=== PATIENT | female | born 1975 | race Caucasian/White ===

== ENCOUNTER 2019-02-22 00:22 | Inpatient (IN) | payer OTHER ==
[~2019-02-22] VITALS: Ht 170.2 cm; Wt 63.0 kg
[2019-02-22 00:25] VITALS: Ht 170.2 cm; Wt 63.0 kg
--- NOTE | 2019-02-22 01:01 | NUR ---
PT BIB SELF FOR C/O SUICIDAL IDEATION. PER PT SHE DID NOT WANT TO LIVE ANYMORE AND STS THAT SHE TOOK " A HANDFULL OF PILLS". PT STS THAT SHE TOOK ASA BUT CANNOT RECALL THE DOSAGE OR THE AMOUNT OF PILLS. PT REPORTS SHE IS NO LONGER SUICIDAL AND WANTS [place] HELP SICNE SHE DOES NOT WANT TO HARM HERSELF ANY LONGER. PT DENIES ANY HI/SI/AH/VH. PT IS SPEAKING IN A FAST MANNER AND SEEMS TO GET EASILY CONFUSED. PT IS A/O X3. PT RESPS ARE E/U. PT IS ABLE TO AMBULATE WITH STEADY GAIT. PT IS PLACED ON MONITOR. DR CROOK AT BEDSIDE FOR MSE
[2019-02-22 01:32] LABS: BASOPHIL % 0.3 % (0-2); PLATELET COUNT 342 x10^3mcL (130-400); RED CELL DISTRIBUTION WIDTH 13.6 % (11.5-14.5)
[2019-02-22 01:38] LABS: CALCIUM 7.4 mg/dL (8.5-10.1); CARBON DIOXIDE 27.1 mmol/L (21-32); CHLORIDE SERUM 105 mmol/L (98-107); CREATININE SERUM 1.1 mg/dL (0.6-1.0); GFR1 57 mL/min; GLUCOSE SERUM 87 mg/dL (74-106); POTASSIUM SERUM 3.2 mmol/L (3.5-5.1); SODIUM SERUM 143 mmol/L (136-145)
[2019-02-22 01:46] LABS: ALKALINE PHOSPHATASE 198 U/L (46-116); ALT/SGPT 156 U/L (14-59); AST/SGOT 47 U/L (15-37); BILIRUBIN TOTAL 0.36 mg/dL (0.20-1.00)
[2019-02-22 01:47] LABS: ALBUMIN 3.1 g/dL (3.4-5.0)
--- NOTE | 2019-02-22 02:15 | NUR ---
CALLED AND SPOKE WITH IFEANYI FROM POISON CONTROL. GAVE IFEANYI REPORT OF THE PT AND WHAT SHE TOLD ME AND RELAYED JOEL RECOMMENDATIONS TO DR MEDINA. WAITING FURTHER ORDERS
--- NOTE | 2019-02-22 02:30 | NUR ---
PT WITNESSED TALKING TO HERSELF WHEN RESPONDING TO PT STATES "IM NOT TALKING TO YOU".
[2019-02-22 03:07] LABS: UA SPECIFIC GRAVITY >=1.030 (1.005-1.035); microscopic required? YES; urine erythrocyte NEGATIVE (NEGATIVE)
--- NOTE | 2019-02-22 03:54 | NUR ---
ACCOMPANIED PT TO RESTROOM. PT AMBULATED WITH STEADY GAIT. PT BACK TO BED 7 IN NAD. PT AWAKE AND ALERT. PT REQUESTING LINEN CHANGE. SHEET APPEARS SOILED. PT BED LINEN CHANGED. PRIMARY RN AWARE.
--- NOTE | 2019-02-22 03:59 | NUR ---
PT REQUESTING SPRITE. OKAY PER DR CROOK TO PROVIDE PT WITH SPRITE AT THIS TIME.
--- NOTE | 2019-02-22 04:18 | NUR ---
REPORT GIVEN TO LARRY CLAY TO ASSUME CARE OF PT.
--- NOTE | 2019-02-22 04:18 | NUR ---
PT LAYING IN BED SLEEPING, VISIBLE RISE AND FALL OF CHEST PT EASILY AROUSABLE.
[2019-02-22 04:28] LABS: FREE T4 1.06 ng/dL (0.76-1.46); FREE THYROXINE INDEX 3.3 ug/dL (1.4-4.5); T4(THYROXINE) 9.5 ug/dL (4.7-13.3)
--- NOTE | 2019-02-22 04:30 | NUR ---
RECEIVED PT FROM ED VIA MINH ACCOMPANIED BY RN. NO ACUTE DISTRESS NOTED. EVEN AND UNLABORED RESPIRATIONS ON RA. TELE#23 PLACED ON PT, READING NSR. IV PATENT AND INTACT, RUNNING FLUIDS PER EMAR. NO C/O OF PAIN AT THIS TIME. C/O DIARRHEA WITH BLACK STOOL DUE TO CHARCOAL GIVEN IN ED. ORIENTED TO ROOM AND SURROUNDINGS. INSTRUCTED ON USE OF CALL LIGHT WHEN IN NEED OF ASSISTANCE. PT STATES HAVING SUICIDAL IDEATIONS WITH PLAN TO OVERDOSE ON PILLS. SUICIDE PRECAUTION IN PLACE. BED IN LOWEST POSITION. SIDE RAILS UPX2. CALL LIGHT WITHIN REACH. WILL CONTINUE TO MONITOR.
--- NOTE | 2019-02-22 04:33 | NUR ---
PT TRANSFERED TO TELE VIA [facility] WITHOUT INCIDENT.
[2019-02-22 04:57] VITALS: BP 108/67
[2019-02-22 05:21] LABS: CHOLESTEROL/HDL RATIO 3.9; MAGNESIUM 1.8 mg/dL (1.8-2.4); PHOSPHOROUS 4.9 mg/dL (2.5-4.9)
[2019-02-22 05:42] LABS: T3 TOTAL 1.66 ng/mL
--- NOTE | 2019-02-22 06:39 | NUR ---
PT ASLEEP COMFORTABLY IN BED. SITTER AT BEDSIDE. EVEN AND UNLABORED RESPIRATIONS ON RA. ON TELE# 23 READING SR 94. UPDATE GIVEN TO POISON CONTROL, SPOKE TO SELAM, RECOMMENDED TO REPEAT LABS AND CONTINUE TO MONITOR. POSSIBILITY CASE WILL BE CLOSED. BED IN LOWEST POSITION. SIDE RAILS UPX2. CALL LIGHT WITHIN REACH. WILL ENDORSE TO ONCOMING SHIFT.
[2019-02-22 06:44] LABS: BASOPHIL % 0.4 % (0-2); PLATELET COUNT 369 x10^3mcL (130-400); RED CELL DISTRIBUTION WIDTH 13.6 % (11.5-14.5)
[2019-02-22 07:00] LABS: ALKALINE PHOSPHATASE 193 U/L (46-116); ALT/SGPT 143 U/L (14-59); AST/SGOT 44 U/L (15-37); BILIRUBIN TOTAL 0.33 mg/dL (0.20-1.00); CALCIUM 7.4 mg/dL (8.5-10.1); CARBON DIOXIDE 25.7 mmol/L (21-32); CHLORIDE SERUM 109 mmol/L (98-107); CREATININE SERUM 0.9 mg/dL (0.6-1.0); GFR1 > 60 mL/min; GLUCOSE SERUM 90 mg/dL (74-106); POTASSIUM SERUM 3.6 mmol/L (3.5-5.1); SODIUM SERUM 143 mmol/L (136-145); TOTAL PROTEIN, SERUM 6.8 g/dL (6.4-8.2)
--- NOTE | 2019-02-22 07:15 | NUR ---
RECEIVED REPORT FROM LARRY CLAY, PT IN BED IN NO ACUTE DISTRESS
--- NOTE | 2019-02-22 08:13 | NUR ---
PT IN BED, IN NO ACUTE DISTRESS, VERBAL, ABLE TO MAKE NEEDS KNOWN, PERLLA, NO REDNESS/DRAINAGE, RESP EVEN, NO SOB/COUGH, TELE #23, NSR, HR NOTED 90, SCDs, ABD FLAT AND NON-TENDER TO TOUCH, BS ACTIVE X 4, DENIED PAIN/CP/PRESSURE, DENIED N/V/, PALP PULSES, CAP REFILL < 3S, AMBULATORY, CONTINENT, IV PATENT AND NO INFILTRATION, SITTER AT BEDSIDE, ALL NEEDS ADDRESSED AT THIS TIME, SAFETY PROTOCOL FOLLOWED, CONTINUE TO MONITOR
--- NOTE | 2019-02-22 08:32 | NUR ---
AM MED GIVEN PER EMAR, TOLERATED WELL, NO ASE NOTED AT THIS TIME, BM X 1, PT IN NO ACUTE DISTRESS, CONTINUE TO MONITOR
[2019-02-22 09:14] VITALS: BP 102/73
[2019-02-22 09:40] LABS: RED BLOOD CELLS 3.72 M/mm3 (4.10-5.10)
[2019-02-22 09:56] LABS: IRON 72 ug/dL (50-170); TOTAL IRON BINDING CAPACITY 294 ug/dL (250-450)
--- NOTE | 2019-02-22 10:35 | NUR ---
PT SLEEPING IN BED, IN NO ACUTE DISTRESS AT THIS TIME
[2019-02-22 12:36] LABS: AMPHETAMINE QUAL UR POSITIVE (See below)
[2019-02-22 13:27] VITALS: BP 113/64
[2019-02-22 16:24] VITALS: BP 95/55
--- NOTE | 2019-02-22 17:20 | NUR ---
PT SLEEPING IN BED, IN NO APPARENT DISTRESS, DENIED CP/PRESSURE/MONSON, DENIED N/V/D, DENIED SI AT THIS TIME, SITTER 1:1 AT BEDSIDE, RESP EVEN, NO SOB/COUGH, TELE # 23, NSR, BS ACTIVE X 4, IV PATENT AND NO INFILTRATION NOTED, DRESSING CDI, SKIN D/C/W, ALL NEEDS ADDRESSED AT THIS TIME, SAFETY PROTOCOL FOLLOWED, WILL ENDORSE TO ONCOMING RN
--- NOTE | 2019-02-22 18:29 | NUR ---
PT REPORTED PAIN TO IV, IV REMOVED, IV CATH TIP INTACT, NO ACTIVE BLEEDING NOTED, NEW IV STARTED TO LFA, 22G, PATENT AND NO-INFILTRATION NOTED, PT TOLERATED WELL, DRESSING CDI
--- NOTE | 2019-02-22 19:27 | NUR ---
SHIFT REASSESSMENT DONE.PATIENT ALERT AND ORIENTED.OD OF ASA.SITTER 1:1.BREATHING EASY.MOVING KRISTA XT WELL.HEPLOCK LFA.NEW.TELE 23 SR.SKIN INTACT.VOIDING.CALL LIGHT IN REACH.
--- NOTE | 2019-02-22 21:00 | NUR ---
PATIENT HAS NO PM MEDS,NO COMPLAINT.
[2019-02-22 21:03] VITALS: BP 100/61
--- NOTE | 2019-02-23 00:58 | NUR ---
SITTER AT BEDSIDE,FOR NEEDS AND SAFETY.CHECKED AT INTERVALS.
--- NOTE | 2019-02-23 02:00 | NUR ---
WANTED SNACK,GIVEN SANDWICH AND SPRITE.NO INCIDENT.
--- NOTE | 2019-02-23 05:26 | NUR ---
I AND O MEASURED.NO DISTRESS THIS SHIFT.WILL CONTINUE PLAN OF CARE.
[2019-02-23 05:55] VITALS: BP 107/71
[2019-02-23 06:48] LABS: BASOPHIL % 0.5 % (0-2); PLATELET COUNT 330 x10^3mcL (130-400); RED CELL DISTRIBUTION WIDTH 13.6 % (11.5-14.5)
[2019-02-23 07:05] LABS: CALCIUM 7.5 mg/dL (8.5-10.1); CARBON DIOXIDE 27.6 mmol/L (21-32); CHLORIDE SERUM 108 mmol/L (98-107); CREATININE SERUM 0.8 mg/dL (0.6-1.0); GFR1 > 60 mL/min; GLUCOSE SERUM 89 mg/dL (74-106); MAGNESIUM 1.6 mg/dL (1.8-2.4); PHOSPHOROUS 3.6 mg/dL (2.5-4.9); POTASSIUM SERUM 3.6 mmol/L (3.5-5.1); SODIUM SERUM 143 mmol/L (136-145)
--- NOTE | 2019-02-23 07:24 | NUR ---
RECEIVED REPORT FROM ERIC CLAY, PT IN BED IN NO ACUTE DISTRESS
--- NOTE | 2019-02-23 07:58 | NUR ---
PT IN BED, IN NO ACUTE DISTRESS, VERBAL, TURKISH, ABLE TO MAKE NEEDS KNOWN, PERRLA, NO REDNESS/DRAINAGE, RESP EVEN, NO SOB/COUGH, RA, TELE # 23, NSR, DENIED CP/PRESSURE/MONSON, DENIED N/V/D, ABD FLAT AND NON-TENDER, BS ACTIVE X 4, AMBULATORY, CONTINENT, IV PATENT AND NO INFILTRATION NOTED, SKIN D/C/W, PALP PULSES, CAP REFILL < 3S, SITTER 1:1 AT BEDSIDE, ALL NEEDS ADDRESSED AT THIS TIME, SAFETY PROTOCOL FOLLWED, CONTINUE TO MONITOR
[2019-02-23 08:08] VITALS: BP 117/75
--- NOTE | 2019-02-23 08:54 | NUR ---
AM MEDS GIVEN PER EMAR, TOLERATED WELL, NO ASE NOTED AT THIS TIME, PT IN BED W/ NO ACUTE DISTRESS
--- NOTE | 2019-02-23 10:25 | NUR ---
TERRY TELE PER FREDERIC PAINTING ORDER, TELE RETURNED TO [facility], TRANSFERED TO [facility]
--- NOTE | 2019-02-23 12:52 | NUR ---
PT REPORTED MONSON, 3/10, MEDICATED PER EMAR, TOLERATED WELL, RESTIG IN BED IN NO ACUTE DISTRESS, SITTER 1:1, CONTINUE TO MONITOR
--- NOTE | 2019-02-23 15:56 | NUR ---
PT SEEN BY DR RICHARDSON FOR PSY CONSULT, SITTING IN BED W/ NO ACUTE DISTRESS, SITTER 1:1 AT BEDSIDE
[2019-02-23 17:29] VITALS: BP 98/61
--- NOTE | 2019-02-23 18:02 | NUR ---
PT RESTING IN BED, IN NO APPARENT DISTRESS, DENIED CP/PRESSURE/MONSON, DENIED N/V/D, DENIED SI AT THIS TIME, SITTER 1:1 AT BEDSIDE, RESP EVEN, NO SOB/COUGH, MEDSURG, BS ACTIVE X 4, IV PATENT AND NO INFILTRATION NOTED, DRESSING CDI, SKIN D/C/W, ALL NEEDS ADDRESSED AT THIS TIME, SAFETY PROTOCOL FOLLOWED, WILL ENDORSE TO ONCOMING RN
--- NOTE | 2019-02-23 19:01 | NUR ---
Called MOOKIE Hernandez that [address] Swartz. Awaiting new 5150 before placement
--- NOTE | 2019-02-23 19:39 | NUR ---
SHIFT REASSESSMENT DONE.PATIENT ALERT AND ORIENTED.WAS UPSET DAYTIME LAST HOUR,SAYS IV IS SWOLLEN,I CHECKED IT IS NOT,FLUHES EASY.WANTING COUGH DROP AND GIVEN,HAPPY AFTERWARDS.SITTER AT BEDSIDE FOR SAFETY.
--- NOTE | 2019-02-23 20:17 | NUR ---
S/W Osman (TOMMY) regarding 5150 not signed by . States the ywill call MD, Will wait for signed 5150 for further placement
--- NOTE | 2019-02-23 20:31 | NUR ---
PM MED GIVEN,SAUNDRA SIDDIQUI [facility] CALLED,DR MARIANO DID NOT SIGN THE 5150 PAPER TODAY.MARVIN AWARE.DR HERNANDEZ AWARE.
[2019-02-23 21:07] VITALS: BP 105/59
--- NOTE | 2019-02-24 04:30 | NUR ---
PATIENT HAS NO COMPLAINT,SLEEPING COMFORTABLY.
[2019-02-24 05:50] VITALS: BP 109/74
--- NOTE | 2019-02-24 06:16 | NUR ---
I AND O MEASURED.NO MAJOR CHANGS THIS SHIFT.SITTER AT BEDSIDE.
--- NOTE | 2019-02-24 08:00 | NUR ---
SEEN IN BED RESTING WITH EYES CLOSE. NO ANY DISTRESS NOTED. BREATHING E/U ON ROOM AIR. ON 5150 HOLD, SITTER 1:1 AT BEDSIDE. S/L TO LFA INTACT AND PATENT.
[2019-02-24 08:12] VITALS: BP 101/67
--- NOTE | 2019-02-24 10:21 | NUR ---
Left vm with Kinjal at . Stated that we are still needing a signature of the [address] Swartz wrote. Please fax copy to [facility] for further placement
--- NOTE | 2019-02-24 12:59 | NUR ---
Called the following facilities [facility] s/w Kelvin no beds [facility] s/w Ray no beds [facility] s/w Rosy no beds [facility] no beds but packet will befaxed once 5150 is received [facility] s/w deborah no beds but packet will be faxed once 5150 is received [facility] s/w Sharon beds
--- NOTE | 2019-02-24 15:35 | NUR ---
Received signed [id number]
--- NOTE | 2019-02-24 15:41 | NUR ---
[facility] s/w Leigh no beds [facility] s/w Pam. Transferred me to Intake, no answer. Left message for a call back
[2019-02-24 17:08] VITALS: BP 109/64
--- NOTE | 2019-02-24 18:53 | NUR ---
NO ANY DISTRESS THROUGHOUT SHIFT. VSS. DENIES PAIN. SEEN BY DOCTOR GARCÍA TODAY. 5150 HOLD WITH SITTER 1:1 AT BEDSIDE. DENIES ANY SUICIDAL IDEATION AT THIS TIME.
--- NOTE | 2019-02-24 19:44 | NUR ---
RECEIVED PT IN BED RESTING , PT;S AAOX4 NO S[facility] , LUNG SOUNDS CTA, ABD SOFT BS ACTIVE X4, CALL LIGHT WITHIN PT'S REACH , SITTER AT THE BEDSIDE FOR SAFETY .
[2019-02-24 20:19] VITALS: BP 108/65
--- NOTE | 2019-02-24 23:35 | NUR ---
Follow up calls were made to contracted [facility] facilities regarding bed placement, currently no beds available at this time. [facility], spoke with Lucas. [facility], spoke with Maryuri. [facility], spoke with Maggy. [facility], spoke with Gerard. [facility], spoke with Linda. [facility], spoke with Cathie. [facility], spoke with Ernestine.
--- NOTE | 2019-02-25 03:07 | NUR ---
PT C/O HEADACHE MEDICATE WTIH TYLENOL 325MG PO , WILL CON'T TO MONITOR PT SITTERE AT THE BEDSIDE FOR SAFETY .
[2019-02-25 05:33] VITALS: BP 132/88
--- NOTE | 2019-02-25 05:56 | NUR ---
I HAVE REVIEWED THE DATA COLLECTION BY NAGI (NAME): MADISON ROSAS ENTERED ON (DATE/TIME): 02/25/19 9633 I CONCUR WITH THE DATA AND ANY EXCEPTIONS OR COMMENTS ARE LISTED BELOW:
--- NOTE | 2019-02-25 06:23 | NUR ---
NO CHANGES OF CONDITION NOTED , ALLD UE MEDS GIVEN NO REACTION NOTED, PT;S IN BED AWAKE DENY SUICIDAL IDEATION SITTER AT THE BEDSIDE FOR SAFETY , HL PATENT FLUSHING WELL.
[2019-02-25 07:19] VITALS: BP 124/73
--- NOTE | 2019-02-25 07:20 | NUR ---
RECEIVED PT FROM NIGHT NURSE. PT IS LAYING DOWN IN BED WITH HOB UP. PT LOOKS TO BE IN NO ACUTE DISTRESS AT THIS TIME AND DENIES ANY PAIN AT THIS TIME. IV SITE PATENT WITH NO SIGNS OF ERYTHEMA OR SWELLING. RESPIRAITONS EVEN AND UNLABORED ON ROOM AIR. BED IN LOWEST POSITION, CALL LIGHT WITHIN REACH. WILL CONTINUE TO MONITOR.
--- NOTE | 2019-02-25 07:37 | NUR ---
[facility] still actively working on placement for this pt. Will contact with any updates.
[2019-02-25 11:37] VITALS: BP 120/68
--- NOTE | 2019-02-25 13:29 | NUR ---
PT REQUESTING TO SHOWER. WRAPPED PT IV. NURSE OUTSIDE DOOR, INFORMED PT NOT TO LOCK DOOR, PT VERBALIZED UNDERSTANDING.
--- NOTE | 2019-02-25 13:50 | NUR ---
PT FINISHED WITH SHOWER. PT STATED, "I FEEL BETTER, I JUST WASHED ALL THOSE FEELINGS DOWN THE DRAIN." PT IS NOW BACK IN BED. LINENS AND BLANKETS CHANGED. PT MADE COMFORTABLE IN BED. SITTER AT BEDSIDE. WILL CONTINUE TO MONITOR.
--- NOTE | 2019-02-25 14:05 | NUR ---
Called the following facilities with no bed availability: [facility], s/w Jeanine Schwartz, s/w Joseline [facility], s/w emily [facility], s/w Apurva Jamison, s/w [facility]
[2019-02-25 16:23] VITALS: BP 90/57
--- NOTE | 2019-02-25 18:26 | NUR ---
PT IS LAYING DOWN IN BED WITH HOB UP RESTING. PT LOOKS TO BE IN NO ACUTE DISTRESS AT THIS TIME AND DENIES ANY PAIN OR THOUGHTS OF SUICIDE AT THIS TIME. IV SITE PATENT WITH NO SIGNS OF ERYTHEMA OR SWELLING. RESPIRATIONS EVEN AND UNLABORED ON ROOM AIR. BED IN LOWEST POSITION, SITTER AT BEDSIDE. CALL LIGHT WITHIN REACH. WILL ENDORSE TO ONCOMING SHIFT.
[2019-02-25 19:31] VITALS: BP 109/70
--- NOTE | 2019-02-25 19:34 | NUR ---
PT'S IN BED AAOX4 DENY SUICIDAL IDEATION AT THE MOMENT , PT C/O HEADACHE WILL MEDICATE PT WITH PRN ORDERED , SITTER AT THE BEDSIDE FOR SAFETY . HL PATENT FLUSHING WELL .
[2019-02-26 05:04] VITALS: BP 108/59
--- NOTE | 2019-02-26 05:12 | NUR ---
I HAVE REVIEWED THE DATA COLLECTION BY FIRE DEPARTMENT MARINE ENGINEER (NAME):MADISON ROSAS ENTERED ON (DATE/TIME): I CONCUR WITH THE DATA AND ANY EXCEPTIONS OR COMMENTS ARE LISTED BELOW:
--- NOTE | 2019-02-26 06:19 | NUR ---
PT'S IN BED WITH EYES CLOSED , SITTER AT THE BEDSIDE AT THE MOMENT FOR SAFETY , HL INTACT FLUSHING WELL.
--- NOTE | 2019-02-26 07:40 | NUR ---
RECEIVED PT FROM FLIGHT ATTENDANT RAMP. PT ASLEEP BUT AROUSABLE, A/OX4. PT ON ROOM AIR WITH NO RESP DISTRESS NOTED. IV ACCESS LEFT FA CDI, SALINE LOCKED. PERIPHERAL PULSES PALPABLE, NO EDEMA NOTED. ACTIVE BS NOTED, NO APPARENT ISSUES WITH ELIMINATION AT THIS TIME. PT DENIES SUICIDAL IDEATION. PT DENIES PAIN AT THIS TIME. SAFETY MEASURES IN PLACE, BED LOW AND LOCKED. CALL LIGHT WITHIN REACH. SITTER AT BEDSIDE.
[2019-02-26 08:51] VITALS: BP 102/59
--- NOTE | 2019-02-26 09:02 | NUR ---
DUE MEDICATIONS ADMINISTERED ORDERED, PT TOLERATED WELL. PT RESTING WITH NO DISCOMFORT NOTED AT THIS TIME.
--- NOTE | 2019-02-26 12:03 | NUR ---
PT AWAKE, ALERT. PT SHOWERED AND SMILING. DR MARIANO AT BEDSIDE. NO ACUTE DISTRESS NOTED AT THIS TIME.
--- NOTE | 2019-02-26 13:08 | NUR ---
Called the following facilities with no bed availability: [place] [facility], s/w Bass[facility], s/w Emeterio [facility], s/w [facility], s/w [facility], s/w intake
[2019-02-26] MEDS ORDERED: LEXAPRO10 MG PO (13:33)
[2019-02-26] MEDS ORDERED: ABILIFY5 M1 PO (13:33)
[2019-02-26 13:49] VITALS: BP 102/59
--- NOTE | 2019-02-26 14:00 | NUR ---
DISCHARGE INSTRUCTIONS/EDUCATION PROVIDED TO PATIENT. PT VERBALIZED UNDERSTANDING. PT TO BE DISCHARGED TO HOME. ALL NEEDS TENDED TO THROUGHOUT SHIFT. SAFETY MEASURES MAINTAINED.
== END 2019-02-26 14:18 | disposition home or self-care (01) | DRG 817 ==
LOC: ED 00:22 → MU 03:16 → DU 03:16 → MU 02-23 09:00
PROVIDERS: Emergency Medicine; ADMIT Internal Medicine
DX: T39.012A Poisoning by aspirin, intentional self-harm, initial encounter (principal); E44.0 Moderate protein-calorie malnutrition; F32.9 Major depressive disorder, single episode, unspecified; Y92.89 Other specified places as the place of occurrence of the external cause; E83.51 Hypocalcemia; D64.9 Anemia, unspecified; Z68.21 Body mass index [BMI] 21.0-21.9, adult
CPT/HCPCS: 36600; 82962; 83880; 84439; C9113; G0378; G0480; J2405; J7030; Q0092; Q0163